=== PATIENT | male | born 1975 | race Caucasian/White ===

== ENCOUNTER 2017-07-17 08:01 | Emergency (ER) | payer MEDICAID ==
[~2017-07-17] VITALS: Ht 165.1 cm; Wt 106.5 kg
[~2017-07-17 08:01] MED LIST: ALBU8.5H3 INH; AZIT250T94 PO; BENZ100C70 PO; PRED20TA PO; PROM5SYR2 PO
[2017-07-17 08:04] VITALS: Ht 165.1 cm; Wt 106.5 kg
[2017-07-17] MEDS ORDERED: ALBUTEROL 0.5% (NEB) 2.5 MG/0.5 ML AMP INH STA (08:33)
[2017-07-17] MEDS ORDERED: METHYLPREDNISOLONE 125 MG INJ IM STA (08:33)
[2017-07-17] MEDS ORDERED: IPRATROPIUM (NEB) 0.5 MG/2.5 ML AMP NEB STA (08:33)
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
--- NOTE | 2017-07-17 10:03 | RADRPT ---
PROCEDURE: XR Chest. CLINICAL INDICATION: Cough TECHNIQUE: Single portable view of the chest was obtained. COMPARISON: 04/07/2016 FINDINGS: Cardiac/vascular structures: Normal cardiomediastinal silhouette. Pulmonary: Lungs are clear. No pleural effusion. No evidence of pneumothorax. Osseous structures: Normal Soft tissues: Normal IMPRESSION: No acute cardiopulmonary disease. RPTAT:AAJJ Physician Reynaldo Date Time Electronically viewed and signed by Karie Adames Physician on 07/17/2017 10:03 /
[2017-07-17] MEDS ORDERED: PRED20TA PO (10:08)
[2017-07-17] MEDS ORDERED: ALBU8.5H3 INH (10:08)
[2017-07-17] MEDS ORDERED: AZIT250T94 PO (10:08)
[2017-07-17 10:12] VITALS: BP 133/83; PULSE 87; RESP 18; TEMP 98.1
== END 2017-07-17 10:13 | disposition home or self-care (01) ==
LOC: FTE 08:01
DX: J20.9 Acute bronchitis, unspecified (principal)
CPT/HCPCS: 71010; 94664; 96372; J2930; Z7502; Z7610

== ENCOUNTER 2017-08-28 08:58 | Inpatient (IN) | END 2017-08-30 16:38 | disposition home or self-care (01) | DRG 871 ==

== ENCOUNTER 2018-07-05 00:03 | Emergency (ER) | END 2018-07-05 06:01 | disposition home or self-care (01) ==

== ENCOUNTER 2018-12-18 23:32 | Emergency (ER) | payer MEDICAID ==
[~2018-12-18] VITALS: Ht 154.9 cm; Wt 95.9 kg
[~2018-12-18 23:32] MED LIST changes: -ALBU8.5H3 INH; -AZIT250T94 PO; -BENZ100C70 PO; +D-ME118S24 PO; +LEVO500T48 PO; -PRED20TA PO; -PROM5SYR2 PO
[2018-12-18 23:36] VITALS: Ht 154.9 cm; Wt 95.9 kg
--- NOTE | 2018-12-19 01:25 | ERD ---
ER Documentation Chief Complaint Chief Complaint C/O COUGH, RT SIDED BACK PAIN AND RASH X1 MONTH HPI This is a 43-year-old male who presents here in the emergency department with complaints of cough for about a month, right-sided upper back pain whenever he coughs, rashes to right upper extremity that is itchy for about 2 weeks, rashes to scrotal area for about 2 weeks. Patient is together with his 7-year-old son who is being seen by myself for throat pain, cough. Denies headache, head injury, loss of consciousness, dizziness, neck pain, neck stiffness, throat pain, difficulty swallowing, difficulty breathing lying flat, shoulder pain, chest pain, back pain, abdominal pain, nausea, vomiting, constipation, diarrhea, urinary symptoms, loss of bowel and bladder control, trauma, injury, falls, difficulty walking due to pain, numbness or tingling sensation, calf pain, recent travel, recent major surgery in the last 3 weeks, calf pain, recent long travel, recent exposure to any illness, recent antibiotic use in the last 3 months, fever, chills, seizures. Past medical history: Denies. Surgical history: Denies. Social: Denies smoking, use of alcoholic beverages, use of illegal drugs. ROS All systems reviewed and are negative except as per history of present illness. Medications Home Meds Active Scripts Guaifenesin* (Robitussin*) 100 Mg/5 Ml Syrup, 200 MG PO Q4H PRN for COUGH, #240 ML Prov:PASILAGIRMA COREASAR F 12/19/18 Mupirocin* (Bactroban*) 2% -22 Gram Oint...g., 1 APPLIC TOP BID for 7 Days, EA Prov:PASILABANGIRMAAR F 12/19/18 Diphenhydramine Hcl* (Benadryl*) 25 Mg Cap, 25 MG PO Q6 PRN for ITCHING/RASH, #30 TAB Prov:PASILABANGIRMAAR F 12/19/18 Ibuprofen* (Motrin*) 800 Mg Tab, 800 MG PO Q6H PRN for PAIN AND OR ELEVATED TEMP, #30 TAB Prov:PASILABAN,GIRMAAR F 12/19/18 Azithromycin* (Zithromax*) 250 Mg Tablet, 250 MG PO .ASL DIRECTED, #6 TAB TAKE 500 MG (2 TABS) THE FIRST DAY THEN 250 MG (1 TAB) DAYS 2-5 Prov:PAIGE ROSARIO 12/19/18 D-Methorphan Hb/P-Epd HCl/Bpm (Cfaqancmzp-Wpnlobjmkcy-Ua Syr) 118 Ml Syrup, 5 ML PO Q4 PRN for COUGH for 7 Days, #1 BOTTLE Prov:LARISA GOLDMAN DO 07/05/18 Levofloxacin* (Levaquin*) 500 Mg Tablet, 500 MG PO DAILY for 7 Days, TAB Prov:SKYLER CUMMINGS MD 08/30/17 Allergies Allergies: Coded Allergies: No Known Allergy (Unverified , 08/28/17) PMhx/Soc History of Surgery: No Anesthesia Reaction: No Hx Neurological Disorder: No Hx Respiratory Disorders: No (BRONCHITIS, PNEUMONIA) Hx Cardiac Disorders: No Hx Psychiatric Problems: No Hx Miscellaneous Medical Probl: No Hx Alcohol Use: No Hx Substance Use: No Hx Tobacco Use: No Smoking Status: Never smoker Physical Exam Vitals Vital Signs Date Temp Pulse Resp B/P (MAP) Pulse Ox O2 O2 Flow FiO2 Time Delivery Rate 12/19/18 98.2 63 18 104/59 99 Room Air 03:14 (74) 12/19/18 99.2 02:20 12/18/18 98.9 102 19 145/95 97 23:36 (112) Physical Exam Const: No acute distress Head: Atraumatic Eyes: Normal Conjunctiva. Eyeballs are not sunken. No signs of severe dehydration. ENT: Normal External Ears, Nose and Mouth. Bilateral ears: TMs are not erythematous. No bleeding. No discharge with no hearing loss. No mastoid tenderness. Nose: Midline without deviation. No septal hematoma. There is no frontal or maxillary sinus tenderness to palpation. Throat/lips: No lip swelling. No tongue swelling. No lesions to mouth. Able to control tongue movement. Uvula is in midline and nondisplaced. Tonsils are +1 bilaterally without redness of the exudates. Tolerating secretions. No drooling. No stridor. Patent airway. Speaks full and clear sentences. Neck: Full range of motion. No meningismus. No nuchal rigidity. No signs of meningeal irritation. Resp: Respirations even and unlabored. Clear to auscultation bilaterally. Chest area: No vesicular lesions. No crepitus. No accessory muscle use in breathing. Cardio: Regular rate and rhythm, no murmurs Abd: Soft, non tender, non distended. Normal bowel sounds. Negative Johnson sign. Negative [place] sign (heel jar test). Negative psoas sign. Negative Rovsing sign. No CVA tenderness. Able to jump 10 times without developing lower abdominal pain. : No vesicular lesions. No scrotal/testicular swelling/discoloration/tenderness. No penile discharge. No signs of testicular torsion. Skin: No petechiae or rashes. No diaphoresis. Color appears normal for ethnicity. No skin tenting. No signs of severe dehydration. Back: No midline or flank tenderness Ext: No cyanosis, or edema Neur: Awake and alert. No obvious facial droop. Romberg test is negative. No neurological deficit. Psych: Normal Mood and Affect Results 24 hrs Current Medications Medications Dose Sig/Moises Start Time Status Last (Trade) Ordered Route PRN Stop Time Admin Dose Reason Admin Ibuprofen 800 mg ONCE ONCE 12/19/18 DC 12/19/18 (Motrin) PO 02:30 02:20 12/19/18 02:31 10 ml ONCE ONCE 12/19/18 DC 12/19/18 Guaifenesin/ PO 02:30 02:19 Codeine 12/19/18 02:31 Phosphate (Robitussin Ac Liquid Cup) Procedures/MDM Diagnostic tests: Chest x-ray: Mild improved lung inflation over the interval. Otherwise, no evidence for active cardiopulmonary disease. Treatment: Motrin. Robitussin. Re-evaluation: Denies neck pain, chest pain, back pain, abdominal pain. No episode of emesis here in the emergency department. Negative Johnson sign. Negative Thomas sign (heel jar test). Negative psoas sign. Negative Rovsing sign. No CVA tenderness. Able to jump 3 times without developing lower abdominal pain. Ambulatory with steady gait and without pain to abdomen. No neurological deficits. Stated that they are comfortable going home. Differential diagnosis I have low suspicion for sepsis, meningitis, peritonsillar abscess, mastoiditis, pneumonia, pulmonary embolism, bronchospasm, pneumothorax, hemothorax, acute abdomen. Final diagnosis: Muscle spasms. Rash. Prescription: Bactroban. Benadryl. Motrin. Robitussin. Azithromycin. Follow-up with PCP in the next 24-48 hours. Come back here in the emergency department for any new symptoms or any worsening symptoms. All questions and concerns were answered. Patient and family members verbalized understanding and agreed with plan of care. Hemodynamically stable on discharge. Departure Diagnosis: Primary Impression: Bronchitis Additional Impressions: Muscle spasm Rash Musculoskeletal pain Condition: Stable Additional Instructions: Follow-up with PCP in the next 24-48 hours. Come back here in the emergency department for any new symptoms or any worsening symptoms. PAIGE ROSARIO December 19, 2018 01:25
[2018-12-19] MEDS ORDERED: BEN25 PO (02:06)
[2018-12-19] MEDS ORDERED: AZIT250T PO (02:06)
[2018-12-19] MEDS ORDERED: IBUP800T48 PO (02:06)
[2018-12-19] MEDS ORDERED: MUPI22OI2 TOP (02:06)
[2018-12-19] MEDS ORDERED: GUAI-637 PO (02:07)
[2018-12-19] MEDS ORDERED: GUAIFENESIN/CODEINE 5ML CUP PO ONE (02:30)
[2018-12-19] MEDS ORDERED: IBUPROFEN 800 MG TAB PO ONE (02:30)
[2018-12-19 03:14] VITALS: BP 104/59; PULSE 63; RESP 18
== END 2018-12-19 03:15 | disposition home or self-care (01) ==
LOC: FTE 23:32
DX: J40 Bronchitis, not specified as acute or chronic (principal); R21 Rash and other nonspecific skin eruption; M62.830 Muscle spasm of back
CPT/HCPCS: 71046; Z7502; Z7610